=== PATIENT | female | born 1990 | race Caucasian/White ===

== ENCOUNTER 2019-03-05 03:59 | Emergency (ER) | payer SELFPAY ==
[~2019-03-05] VITALS: Ht 170.2 cm; Wt 86.2 kg
--- NOTE | 2019-03-05 04:00 | NUR ---
Received pt. in Bed 3 A/O x 4 speaks clearly in full complete sentences. Lying supine on gurney HOB elevated 45 degrees stated she has mono for the past 2 months and has had fever and has sorethroat pain 8/10 constant and it feels like it is on fire. 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 Dr[address] Sandoval in to see pt at this time.
[2019-03-05] MEDS ORDERED: LEVOTHYROXINE 125 MCG TABLET (04:08)
[2019-03-05] MEDS ORDERED: BUPROPION HCL XL 300 MG TABLET (04:08)
[2019-03-05] MEDS ORDERED: SPIRONOLACTONE 50 MG TABLET (04:08)
[2019-03-05] MEDS ORDERED: METFORMIN HCL ER 500 MG TABLET (04:08)
[2019-03-05 05:03] LABS: BASOPHILS # (AUTO) 0.1 K/uL (0.0-8.0); BASOPHILS % (AUTO) 0.8 % (0.0-2.0); EOSINOPHILS % (AUTO) 0.5 % (0.0-7.0); HEMATOCRIT 38.1 % (31.2-41.9); HEMOGLOBIN 13.2 g/dL (10.9-14.3); LYMPHOCYTES # (AUTO) 3.3 K/uL (20.0-40.0); LYMPHOCYTES % (AUTO) 34.7 % (20.5-51.5); MEAN CORPUSCULAR HEMOGLOBIN 30.5 uug (24.7-32.8); MEAN CORPUSCULAR HGB CONC 35 g/dL (32.3-35.6); MONOCYTES # (AUTO) 0.8 K/uL (2.0-10.0); MONOCYTES % (AUTO) 8.8 % (0.0-11.0); NEUTROPHILS # (AUTO) 5.2 K/uL (1.8-8.9); NEUTROPHILS % (AUTO) 55.2 % (38.5-71.5); PLATELET COUNT (AUTO) 214 K/uL (179-408); RED BLOOD CELL COUNT(AUTO) 4.33 MIL/uL (3.63-4.92); WHITE BLOOD COUNT (AUTO) 9.4 K/uL (3.8-11.8)
[2019-03-05 05:15] LABS: ALANINE AMINOTRANSFERASE 364 U/L (14-59); ALKALINE PHOSPHATASE 158 U/L (50-136); ASPARTATE AMINOTRANSFERASE 106 U/L (15-37); BILIRUBIN,DIRECT 0.2 mg/dL (0.0-0.2); BILIRUBIN,TOTAL 0.6 mg/dL (0.2-1.0); CARBON DIOXIDE 32 mmol/L (21-32); CHLORIDE 100 mmol/L (98-107); CREATININE 0.6 mg/dL (0.6-1.3); GLUCOSE 112 mg/dL (74-106); LIPASE 66 U/L (73-393); POTASSIUM 3.7 mmol/L (3.5-5.1); TOTAL PROTEIN, SERUM 8.1 g/dL (6.4-8.2); UREA NITROGEN, BLOOD 6 mg/dL (7-18)
[2019-03-05 05:16] LABS: *MONOTEST POSITIVE (NEGATIVE)
[2019-03-05] MEDS ORDERED: predniSONE 20 MG TABLET PO ONE (06:00)
[2019-03-05] MEDS ORDERED: predniSONE 20 MG TABLET ONE (06:07)
[2019-03-05] MEDS ORDERED: HYDROCODONE/APAP 5-325MG TABLET ONE (06:07)
[2019-03-05] MEDS ORDERED: HYDROCODONE/APAP 5-325MG TABLET PO ONE (06:15)
== END 2019-03-05 07:08 | disposition home or self-care (01) ==
LOC: ER 04:03
DX: L04.0 Acute lymphadenitis of face, head and neck (principal); E03.9 Hypothyroidism, unspecified; Z79.899 Other long term (current) drug therapy
CPT/HCPCS: 36415; 70490; 80048; 80076; 83690; 84702; 85025; 86308; 99284; J7512; A4663